=== PATIENT | female | born 1965 | race Caucasian/White ===

== ENCOUNTER 2019-03-15 10:17 | Outpatient (CLI) | payer BC ==
--- NOTE | 2019-03-15 12:32 | MMO ---
Bilateral MAMMO Bilat Screen [facility]. CLINICAL HISTORY: Patient is 53 years old and is seen for screening. The patient has no family history of breast cancer. The patient has no personal history of cancer. VIEWS: The views performed were: bilateral craniocaudal with tomosynthesis; bilateral mediolateral oblique with tomosynthesis; and bilateral exaggerated craniocaudal. FILMS COMPARED: The present examination has been compared to prior imaging studies performed at [facility] on 01/02/2015, 01/08/2016, 01/27/2017 and 02/16/2018. This study has been interpreted with the assistance of computer-aided detection. MAMMOGRAM FINDINGS: The breasts are heterogeneously dense, which could obscure a lesion on mammography. There are no suspicious masses, suspicious calcifications, or new areas of architectural distortion. IMPRESSION: THERE IS NO MAMMOGRAPHIC EVIDENCE OF MALIGNANCY. A ROUTINE FOLLOW-UP MAMMOGRAM IN 1 YEAR IS RECOMMENDED. THE RESULTS OF THIS EXAM WERE SENT TO THE PATIENT. ACR BI-RADS Category 1 - Negative MAMMOGRAPHY NOTE: 1. A negative mammogram report should not delay a biopsy if a dominant of clinically suspicious mass is present. 2. Approximately 10% to 15% of breast cancers are not detected by mammography. 3. Adenosis and dense breasts may obscure an underlying neoplasm. Reported by: SOFIA REED MD Electonically Signed: [id number]
== END 2019-03-15 10:18 | disposition home or self-care (01) ==
LOC: BICMAMMO 10:17
PROVIDERS: ATTEND Obstetrics & Gynecology
DX: Z12.31 Encounter for screening mammogram for malignant neoplasm of breast (principal)
CPT/HCPCS: 77063; 77067

== ENCOUNTER 2020-03-20 12:26 | Outpatient (CLI) | payer BC ==
--- NOTE | 2020-03-20 13:02 | BD ---
EXAM: Bone densitometry using DEXA HISTORY: 54 yo female. Screening for postmenopausal osteoporosis FINDINGS: L1--bone mineral density 1.084 g/sq cm; T score 0.9 ; Z score 1.8 L2--bone mineral density 1.121 g/sq cm; T score 0.8 ; Z score 1.9 L3--bone mineral density 1.136 g/sq cm; T score 0.5 ; Z score 1.6 L4--bone mineral density 1.115 g/sq cm; T score 0.5 ; Z score 1.6 Total L1-L4--bone mineral density 1.115 g/sq cm; T score 0.6 ; Z score 1.7 Left femoral neck--bone mineral density0.812; T score -0.3 ; Z score 0.7 Total proximal left femur--bone mineral density 1.052; T score 0.9 ; Z score 1.6 IMPRESSION: Normal BMD
--- NOTE | 2020-03-20 13:21 | MMO ---
Bilateral MAMMO Bilat Screen [facility]. CLINICAL HISTORY: Patient is 54 years old and is seen for screening. The patient has no family history of breast cancer. The patient has no personal history of cancer. VIEWS: The views performed were: bilateral craniocaudal with tomosynthesis; bilateral mediolateral oblique with tomosynthesis; and bilateral exaggerated craniocaudal. FILMS COMPARED: The present examination has been compared to prior imaging studies performed at [facility] on 01/08/2016, 01/27/2017, 02/16/2018 and 03/15/2019. This study has been interpreted with the assistance of computer-aided detection. MAMMOGRAM FINDINGS: The breasts are heterogeneously dense, which could obscure a lesion on mammography. There are no suspicious masses, suspicious calcifications, or new areas of architectural distortion. IMPRESSION: THERE IS NO MAMMOGRAPHIC EVIDENCE OF MALIGNANCY. A ROUTINE FOLLOW-UP MAMMOGRAM IN 1 YEAR IS RECOMMENDED. THE RESULTS OF THIS EXAM WERE SENT TO THE PATIENT. ACR BI-RADS Category 1 - Negative MAMMOGRAPHY NOTE: 1. A negative mammogram report should not delay a biopsy if a dominant of clinically suspicious mass is present. 2. Approximately 10% to 15% of breast cancers are not detected by mammography. 3. Adenosis and dense breasts may obscure an underlying neoplasm. Reported by: BIENVENIDO QUIÑONES MD Electonically Signed: [id number]
== END 2020-03-20 12:27 | disposition home or self-care (01) ==
LOC: BICMAMMO 12:26
PROVIDERS: ATTEND Obstetrics & Gynecology
DX: Z12.31 Encounter for screening mammogram for malignant neoplasm of breast (principal); M81.0 Age-related osteoporosis without current pathological fracture; Z79.890 Hormone replacement therapy; Z13.820 Encounter for screening for osteoporosis; M85.80 Other specified disorders of bone density and structure, unspecified site
CPT/HCPCS: 77063; 77067; 77080

== ENCOUNTER 2021-04-02 11:47 | Outpatient (CLI) | payer BC | END 2021-04-02 11:48 | disposition home or self-care (01) | LOC: BICMAMMO 11:47 | PROVIDERS: ATTEND Obstetrics & Gynecology | DX: Z12.31 Encounter for screening mammogram for malignant neoplasm of breast (principal) | CPT/HCPCS: 77063; 77067 ==

== ENCOUNTER 2022-04-15 11:57 | Outpatient (CLI) | payer BC | END 2022-04-15 11:58 | disposition home or self-care (01) | LOC: BICMAMMO 11:57 | PROVIDERS: ATTEND Obstetrics & Gynecology | DX: Z12.31 Encounter for screening mammogram for malignant neoplasm of breast (principal) | CPT/HCPCS: 77063; 77067 ==

== ENCOUNTER 2024-05-18 13:45 | Outpatient (CLI) | payer BC | END 2024-05-18 13:46 | disposition home or self-care (01) | LOC: BICMAMMO 13:45 | PROVIDERS: ATTEND Obstetrics & Gynecology | DX: Z12.31 Encounter for screening mammogram for malignant neoplasm of breast (principal) | CPT/HCPCS: 77063; 77067 ==